=== PATIENT | male | born 1995 | race Caucasian/White ===

== ENCOUNTER 2017-01-29 21:45 | Emergency (ER) | payer OTHER ==
[~2017-01-29] VITALS: Ht 172.7 cm; Wt 100.0 kg
[2017-01-29] MEDS ORDERED: NAPR500T PO (23:54)
[2017-01-29] MEDS ORDERED: traMADol 50 MG TAB As Ordered ONE (23:57)
[2017-01-30] MEDS ORDERED: traMADol 50 MG TAB (BULK 4 TAB ED) PO ONE
[2017-01-30 00:07] VITALS: BP 126/72
--- NOTE | 2017-01-30 09:20 | REP ---
LEFT ANKLE SERIES, COMPLETE: 01/29/2017 COMPARISON: None. CLINICAL HISTORY: Trauma. FINDINGS: Four views are provided. The mortise joint is symmetric and preserved. There is no talar dome osteochondral defect. No fracture or avulsion of the distal tibia or fibula. Subtalar joints are intact. No heel spurs. Small bone island in the posterior calcaneus. Minor swelling about the ankle. Talonavicular and calcaneocuboid joints normal. IMPRESSION: 1. No visible fracture, avulsion, disruption of the mortise joint or other acute finding. Signed by Marcelo Zepeda MD 01/30/2017 10:53 A
== END 2017-01-30 00:14 | disposition home or self-care (01) ==
LOC: M ED 23:45
DX: S93.402A Sprain of unspecified ligament of left ankle, initial encounter (principal); X50.9XXA Other and unspecified overexertion or strenuous movements or postures, initial encounter; Y92.219 Unspecified school as the place of occurrence of the external cause; Y93.89 Activity, other specified; Y99.8 Other external cause status

== ENCOUNTER 2018-03-21 07:59 | Emergency (ER) | payer SELFPAY, OTHER ==
[2018-03-21 08:35] LABS: BASO % 0.4 % (0.0-1.0); EOS # 0.1 10^3/uL (0.0-0.50); EOS % 1.1 % (0.0-3.0); HEMATOCRIT 48.5 % (42.0-52.0); HEMOGLOBIN 16.5 g/dl (13.5-17.5); IMMATURE GRANULOCYTE % 0.4 % (0-3.0); LYMPH # 1.4 10^3/uL (1.5-6.5); LYMPH % 18.5 % (24.0-44.0); MEAN CORPUSCULAR HEMOGLOBIN 30.5 pg (27.0-33.0); MEAN CORPUSCULAR VOLUME 89.6 fl (80.0-96.0); MONO # 0.8 10^3/uL (0.0-0.8); MONO % 10.8 % (0.0-5.0); NEUTROPHILS # 5.2 10^3/uL (1.8-7.7); NEUTROPHILS % 68.8 % (36.0-66.0); PLATELET COUNT, AUTOMATED 183 10^3/uL (150-450); RED BLOOD COUNT 5.41 10^6/uL (4.30-6.10); RED CELL DISTRIBUTION WIDTH 11.9 % (11.5-14.5); WHITE BLOOD COUNT 7.6 10^3/uL (4.0-10.0)
[2018-03-21] MEDS: ONDANSETRON 4MG/2ML VIAL (J2405) IV (08:38)
[2018-03-21] MEDS: MORPHINE 4 MG/ML 1ML VIAL/SYRINGE (J2270) IV (08:38)
[2018-03-21] MEDS: NS 1,000 ML IV ×2 (08:38→09:30)
[2018-03-21 08:53] LABS: ALBUMIN 4.1 GM/DL (3.2-5.2); ALBUMIN/GLOBULIN RATIO 1.14 (1.00-1.93); ALKALINE PHOSPHATASE 75 U/L (45-117); ALT/SGPT 56 U/L (12-78); ANION GAP 8 MEQ/L (8-16); AST/SGOT 26 U/L (7-37); BILIRUBIN,DIRECT 0.2 MG/DL (0.0-0.2); BILIRUBIN,TOTAL 0.7 MG/DL (0.2-1.0); BLOOD UREA NITROGEN 20 MG/DL (7-18); CALCIUM LEVEL 9.6 MG/DL (8.5-10.1); CARBON DIOXIDE LEVEL 26 MEQ/L (21-32); CHLORIDE LEVEL 110 MEQ/L (98-107); CREATININE FOR GFR 1.65 MG/DL (0.70-1.30); GLOMERULAR FILTRATION RATE 56.3 (>60); GLUCOSE, FASTING 98 MG/DL (70-100); LIPASE 112 U/L (73-393); POTASSIUM SERUM 4.1 MEQ/L (3.5-5.1); SODIUM LEVEL 144 MEQ/L (136-145); TOTAL PROTEIN 7.7 GM/DL (6.4-8.2)
[2018-03-21] MEDS ORDERED: ISOVUE-370 76% 100ML VIAL (Q9967) As Ordered (09:15)
[2018-03-21 09:36] LABS: CPK CREATINE PHOSPHOKINASE 128 U/L (39-308)
[2018-03-21] MEDS: KETOROLAC 30 MG/ML VIAL (J1885) IV (11:11)
== END 2018-03-21 11:23 | disposition home or self-care (01) ==
LOC: M ED 07:59
DX: E86.0 Dehydration (principal); R10.31 Right lower quadrant pain; R11.2 Nausea with vomiting, unspecified; J45.909 Unspecified asthma, uncomplicated
CPT/HCPCS: J2270

== ENCOUNTER → 2019-11-30 | Outpatient (CLI) | payer BC ==
[~2019-11-30] MED LIST: NAPR-837 PO; ZOFR4TAB14 PO
== END ==
LOC: M LABSMTC 11:55
PROVIDERS: ATTEND Family Medicine
DX: Z11.59 Encounter for screening for other viral diseases (principal)

== ENCOUNTER → 2021-03-02 | Outpatient (REF) | payer OTHER | LOC: M LAB REF 15:43 | PROVIDERS: ATTEND Physician Assistant | DX: J00 Acute nasopharyngitis [common cold] (principal) ==

== ENCOUNTER → 2021-06-22 | Outpatient (REF) | payer OTHER | LOC: M LAB REF 15:31 | PROVIDERS: ATTEND Physician Assistant | DX: R05.9 Cough, unspecified (principal) ==

== ENCOUNTER → 2022-01-07 | Outpatient (CLI) | payer OTHER | LOC: M WUC 08:19 | DX: S61.032A Puncture wound without foreign body of left thumb without damage to nail, initial encounter (principal); X58.XXXA Exposure to other specified factors, initial encounter; Y92.89 Other specified places as the place of occurrence of the external cause; Y93.89 Activity, other specified; Y99.8 Other external cause status ==

== ENCOUNTER → 2023-01-06 | Outpatient (CLI) | payer OTHER | LOC: M WUC 08:18 | PROVIDERS: ATTEND Student in an Organized Health Care Education/Training Program | DX: S91.331A Puncture wound without foreign body, right foot, initial encounter (principal); M79.671 Pain in right foot; X58.XXXA Exposure to other specified factors, initial encounter; Y92.9 Unspecified place or not applicable; Y93.9 Activity, unspecified; Y99.9 Unspecified external cause status ==

== ENCOUNTER → 2023-07-08 | Outpatient (REF) | payer OTHER ==
[2023-07-08 12:01] LABS: BASO % 0.6 % (0.0-1.0); EOS # 0.1 10^3/uL (0.0-0.5); EOS % 1.7 % (0.0-3.0); HEMATOCRIT 51.5 % (42.0-52.0); HEMOGLOBIN 16.7 g/dl (13.5-17.5); LYMPH # 1.6 10^3/uL (1.5-5.0); LYMPH % 23.8 % (24.0-44.0); MEAN CORPUSCULAR HEMOGLOBIN 30.3 pg (27.0-33.0); MEAN CORPUSCULAR HGB CONC 32.4 g/dl (32.0-36.5); MEAN CORPUSCULAR VOLUME 93.5 fl (80.0-96.0); MONO # 0.5 10^3/uL (0.0-0.8); MONO % 8.1 % (2.0-8.0); NEUTROPHILS # 4.3 10^3/uL (1.5-8.5); NEUTROPHILS % 65.6 % (36.0-66.0); PLATELET COUNT, AUTOMATED 209 10^3/uL (150-450); RED BLOOD COUNT 5.51 10^6/uL (4.30-6.10); WHITE BLOOD COUNT 6.5 10^3/uL (4.0-10.0)
[2023-07-08 12:35] LABS: ALBUMIN 3.9 G/DL (3.2-5.2); ALKALINE PHOSPHATASE 75 U/L (46-116); ALT/SGPT 84 U/L (7.0-40); AST/SGOT 45 U/L (<34); BLOOD UREA NITROGEN 11 MG/DL (9-23); CALCIUM LEVEL 9.5 MG/DL (8.5-10.1); CARBON DIOXIDE LEVEL 29 MMOL/L (20-31); CHLORIDE LEVEL 104 MMOL/L (98-107); GLOMERULAR FILTRATION RATE > 60.0 (>60); GLUCOSE, FASTING 74 MG/DL (60-100); POTASSIUM SERUM 4.4 MMOL/L (3.5-5.1); SODIUM LEVEL 141 MMOL/L (136-145); THYROID STIMULATING HORMONE 2.542 uIU/ML (0.55-4.78); TOTAL PROTEIN 6.8 G/DL (5.7-8.2)
== END ==
LOC: M WUC 10:25
PROVIDERS: ATTEND Family Medicine
DX: R53.83 Other fatigue (principal)

== ENCOUNTER → 2023-10-21 | Outpatient (CLI) | payer OTHER ==
[2023-10-21 13:01] LABS: C REACTIVE PROTEIN QUANTITATIV < 0.40 MG/DL (<1.0)
[2023-10-21 13:02] LABS: RHEUMATOID FACTOR QUANT 10.1 IU/ML (<14)
[2023-10-21 13:04] LABS: URIC ACID 6.5 MG/DL (3.7-9.2)
[2023-10-22 15:09] LABS: ANTINUCLEAR ANTIBODIES DIRECT Negative (Negative)
== END ==
LOC: M WUC 08:50
PROVIDERS: ATTEND Physician Assistant
DX: M25.552 Pain in left hip (principal)

== ENCOUNTER 2024-05-01 08:20 | Emergency (ER) | payer OTHER ==
[~2024-05-01] VITALS: Ht 172.7 cm; Wt 100.7 kg
[2024-05-01 08:21] VITALS: TEMP 96.9; O2SAT 98
[2024-05-01] MEDS: methocarbamoL 750 MG TAB PO ONE (11:39)
[2024-05-01] MEDS: KETOROLAC 60MG 2ML VIAL IM ONE (11:51)
[2024-05-01] MEDS ORDERED: GABA-1171 PO (13:15)
[2024-05-01] MEDS ORDERED: MEDR4PAK PO (13:15)
[2024-05-01 13:47] VITALS: BP 146/82
== END 2024-05-01 13:48 | disposition home or self-care (01) ==
LOC: M ED 08:20
DX: M54.6 Pain in thoracic spine (principal); Z79.1 Long term (current) use of non-steroidal anti-inflammatories (NSAID); Z79.899 Other long term (current) drug therapy
CPT/HCPCS: 96372; 99283; J1885